=== PATIENT | male | born 1970 ===

== ENCOUNTER 2016-07-18 19:48 | Observation (INO) | payer OTHER ==
[~2016-07-18] VITALS: Ht 175.3 cm; Wt 85.0 kg
[2016-07-18 22:47] VITALS: BP 117/69; PULSE 64; TEMP 97.2
[2016-07-18] MEDS ORDERED: SUDAFED 12 HOU120 MG PO (23:17)
[2016-07-19 02:03] VITALS: BP 100/57; BP 93/48; PULSE 81; TEMP 98.5
[2016-07-19 04:53] VITALS: BP 96/54; PULSE 63; TEMP 98.8
[2016-07-19 10:56] VITALS: BP 101/59; PULSE 61; TEMP 97.6
[2016-07-19 13:49] VITALS: BP 104/57; PULSE 74; TEMP 97.8
[2016-07-19] MEDS ORDERED: ANTIVERT 25MG25 MG PO (16:01)
[2016-07-19] MEDS ORDERED: FLONASE NASAL S16 GM NS (16:02)
[2016-07-19] MEDS ORDERED: CLARITIN 1010 MG/TAB PO (16:02)
== END 2016-07-19 16:34 | disposition home or self-care (01) ==
LOC: SURG 19:48
DX: R42 Dizziness and giddiness (principal); H81.23 Vestibular neuronitis, bilateral; Z87.891 Personal history of nicotine dependence; J32.2 Chronic ethmoidal sinusitis; R11.2 Nausea with vomiting, unspecified
CPT/HCPCS: A9585; G0378; G0379; G8978-GP; G8979-GP; J2060; J2550; J7030